=== PATIENT | female | born 1990 | race Two or more races ===

== ENCOUNTER 2016-11-01 07:58 | Day surgery (SDC) | payer MEDICAID, SELFPAY ==
[~2016-11-01 07:58] MED LIST: /MOXI40TA OR; ALBUTEROL INH; DUONSOL INH; PRED10TA2 OR; PRED20TA OR; PRED50TA OR; SING10TA31 PO
[2016-11-01] MEDS ORDERED: ONDANSETRON 4MG/2ML VIAL (J2405) IV ONE (08:30)
[2016-11-01] MEDS ORDERED: NS 1,000 ML IV ONE ×2 (08:30→10:00)
[2016-11-01] MEDS ORDERED: MORPHINE 4 MG/ML 1ML SYRINGE IV ONE (08:30)
[2016-11-01 08:45] LABS: BASO % 0.2 % (0.0-1.0); EOS # 0.1 K/mm3 (0.0-0.50); EOS % 0.9 % (0.0-3.0); LARGE UNSTAINED CELL # 0.1 K/mm3 (0.0-0.4); LARGE UNSTAINED CELL % 0.6 % (0.0-4.0); LYMPH % 5.7 % (24.0-44.0); MEAN CORPUSCULAR HGB CONC 32.2 g/dl (32.0-36.5); MEAN CORPUSCULAR VOLUME 90.3 fl (80.0-96.0); MONO # 0.6 K/mm3 (0.0-0.8); MONO % 3.5 % (0.0-5.0); NEUTROPHILS # 14.1 K/mm3 (1.8-7.7); NEUTROPHILS % 89.1 % (36.0-66.0); PLATELET COUNT, AUTOMATED 313 k/mm3 (150-450); RED CELL DISTRIBUTION WIDTH 12.3 % (11.5-14.5); WHITE BLOOD COUNT 15.9 K/mm3 (4.0-10.0)
[2016-11-01 08:59] LABS: CONTROL LINE HCG INT CTR LINE PRESENT
[2016-11-01 09:07] LABS: ALBUMIN 3.9 GM/DL (3.2-5.2); ALBUMIN/GLOBULIN RATIO 0.98 (1.00-1.93); ALKALINE PHOSPHATASE 74 U/L (45-117); ALT/SGPT 35 U/L (12-78); ANION GAP 9 MEQ/L (8-16); AST/SGOT 17 U/L (15-37); BILIRUBIN,TOTAL 0.7 MG/DL (0.2-1.0); BLOOD UREA NITROGEN 12 MG/DL (7-18); CARBON DIOXIDE LEVEL 26 MEQ/L (21-32); CHLORIDE LEVEL 106 MEQ/L (98-107); GLOMERULAR FILTRATION RATE > 60.0 (>60); GLUCOSE, FASTING 117 MG/DL (70-105); POTASSIUM SERUM 3.6 MEQ/L (3.5-5.1); SODIUM LEVEL 141 MEQ/L (136-145); TOTAL PROTEIN 7.9 GM/DL (6.4-8.2)
--- NOTE | 2016-11-01 09:46 | REP ---
Clinical: Flank pain. Findings: Acute right-sided obstructive uropathy with hydroureteronephrosis and. Ureteral stranding secondary to a 3 mm calculus at the ureterovesicle junction (image 134). A 2 mm nonobstructing left renal calculus also identified. Liver, spleen, pancreas, gallbladder, bilateral adrenal glands are normal. The enteric system is without obstruction or acute inflammatory process and a normal terminal ileum and appendix are identified in the right lower quadrant. Few scattered sigmoid diverticula noted without acute diverticulitis. Pelvis demonstrates normal uterus / adnexa and partially collapsed bladder. No ascites. No free air. No adenopathy. Abdominal aorta without aneurysm. Lung bases demonstrate left lower lobe atelectasis. Impression: 1. Mild acute right-sided obstructive uropathy with a 3 mm calculus at the ureterovesicle junction. 2. 2 mm nonobstructing left renal calculus. 3. Left basilar atelectasis. Signed by Kyree Amaro MD 11/01/2016 09:37 A
[2016-11-01] MEDS ORDERED: KETOROLAC 30 MG/ML VIAL (J1885) IV ONE (10:00)
[2016-11-01] MEDS ORDERED: CIPROFLOXACIN/D5W 400 MG/200 ML BAG (J0744) As Ordered ONE (11:36)
--- NOTE | 2016-11-01 11:48 | SMCUROLCON ---
Urology Consultation General Date of Consultation 11/01/16 Reason For Consultation This patient is seen for Right Ureter Stone, leukocytosis. NPO. Cystoscopy, right RPG, JJ. Cipro. dc home after. Strain urine. Full consultation dictated. History of Present Illness The patient is a -year-old with a past medical history for . Medications Current Medications Current Medications Home Med (Med Rec Complete!) ASDIRECTED XX ; Start 11/01/16 at 10:30; Stop at 10:30; Status DC Allergies Allergies: Coded Allergies: No Known Drug Allergy (Verified Allergy, Unknown, 05/21/12) SEASONAL ALLERGIES (Verified Allergy, Unknown, 09/03/10) Vital Signs/I&O Vital Signs Date Time Temp Pulse Resp B/P (MAP) Pulse Ox O2 Delivery O2 Flow Rate FiO2 11/01/16 10:52 97.8 76 18 139/91 (107) 97 11/01/16 09:17 Room Air Laboratory Data 24H Labs Laboratory Tests 2 11/01/16 08:34: White Blood Count 15.9H, Red Blood Count 4.45, Hemoglobin 12.9, Hematocrit 40.2 , Mean Corpuscular Volume 90.3, Mean Corpuscular Hemoglobin 29.0, Mean Corpuscular Hemoglobin Concent 32.2, Red Cell Distribution Width 12.3, Platelet Count 313, Neutrophils (%) (Auto) 89.1H, Lymphocytes (%) (Auto) 5.7L, Monocytes (%) (Auto) 3.5, Eosinophils (%) (Auto) 0.9, Basophils (%) (Auto) 0.2, Neutrophils # (Auto) 14.1H, Lymphocytes # (Auto) 1.0L, Monocytes # (Auto) 0.6, Eosinophils # (Auto) 0.1, Basophils # (Auto) 0.0, Large Unclassified Cells % 0.6 , Large Unclassified Cells # 0.1, Anion Gap 9, Glomerular Filtration Rate > 60.0 , Blood Urea Nitrogen 12, Creatinine 0.80, Sodium Level 141, Potassium Level 3.6 , Chloride Level 106, Carbon Dioxide Level 26, Calcium Level 9.0, Aspartate Amino Transf (AST/SGOT) 17, Alanine Aminotransferase (ALT/SGPT) 35, Alkaline Phosphatase 74, Total Bilirubin 0.7, Total Protein 7.9, Albumin 3.9, Albumin/ Globulin Ratio 0.98L, Lipase 100, Human Chorionic Gonadotropin, Qual NEGATIVE 11/01/16 09:49: Urine Appearance HAZY, Urine Color YELLOW, Urine pH 6.0, Urine Specific [place] 1.026, Urine Protein 1+H, Urine Glucose (UA) NEGATIVE, Urine Ketones TRACEH, Urine Urobilinogen 0.2, Urine Bilirubin NEGATIVE, Urine Leukocyte Esterase NEGATIVE, Urine Blood 3+H, Urine Nitrite NEGATIVE, Urine WBC (Auto) 2, Urine RBC (Auto) TNTCH, Urine Hyaline Casts (Auto) 0, Urine Bacteria (Auto) NEGATIVE, Urine Squamous Epithelial Cells 1, Urine Mucus (Auto) SMALL, Urine Sperm (Auto) CBC/BMP Laboratory Tests 11/01/16 08:34 Red Blood Count 4.45, Mean Corpuscular Volume 90.3, Mean Corpuscular Hemoglobin 29.0, Mean Corpuscular Hemoglobin Concent 32.2, Red Cell Distribution Width 12.3 , Neutrophils (%) (Auto) 89.1 H, Lymphocytes (%) (Auto) 5.7 L, Monocytes (%) ( Auto) 3.5, Eosinophils (%) (Auto) 0.9, Basophils (%) (Auto) 0.2, Neutrophils # ( Auto) 14.1 H, Lymphocytes # (Auto) 1.0 L, Monocytes # (Auto) 0.6, Eosinophils # (Auto) 0.1, Basophils # (Auto) 0.0, Calcium Level 9.0, Aspartate Amino Transf ( AST/SGOT) 17, Alanine Aminotransferase (ALT/SGPT) 35, Alkaline Phosphatase 74, Total Bilirubin 0.7, Total Protein 7.9, Albumin 3.9 Microbiology Microbiology 11/01/16 Urine Culture, Received Pending JEANA ELIZABETH MD Nov 01, 2016 11:48
[2016-11-01] MEDS ORDERED: CONRAY-60 60% 50ML VIAL (Q9961) As Ordered ONE (11:53)
[2016-11-01] MEDS ORDERED: CIPROFLOXACIN 400 MG in APPROPRIATE DILUENT 1 EA IV ONE (12:00)
--- NOTE | 2016-11-01 12:12 | CR ---
DATE OF CONSULTATION: 11/01/2016 This 26-year-old female was evaluated in consultation as requested by nurse practitioner Gen on 11/01/2016 for right renal colic. She presents with a one day history of right renal colic with intermittent gross hematuria. She is a recurrent stone former (spontaneous passage). Prior to presentation, there was no history of voiding symptoms, urinary tract infection, urolithiasis, flank pain, gross hematuria, or constitutional symptoms. Past medical history significant for asthma. Review of systems negative for diabetes, hypertension, cardiac or thyroid pathology, headaches, epilepsy, CVA, glaucoma, peptic ulcer disease, cholelithiasis or blood borne diseases. She is on no medications and has no allergies to medications. Socially, she is and has one child. She is a three cigarette per day smoker for 7 years who consumes alcohol occasionally. Family history is significant for nephrolithiasis on the paternal side. General examination revealed a comfortable individual. Her heart rate was 76. Respiratory rate was 18. Blood pressure was 139/91. Temperature was 97.8 degrees Fahrenheit. Palpation of the head and neck failed to reveal lymphadenopathy. Auscultation of the chest was clear. Normal heart sounds. Examination of the back and abdomen were benign. She was obese. An urinalysis (11/01/2016) demonstrated 3+ microhematuria with a pH of 6.0. Nitrites and leukocytes were negative. Serum hematologic and biochemical indices determination (11/01/2016) demonstrated a hemoglobin of 12.9, leukocyte count 15.9, and a creatinine of 0.8. Computed tomography of the abdomen and pelvis without intravenous contrast (11/01/2016) demonstrated a 3 mm right ureterovesical junction calculus and a 2 mm left kidney calculus. A serum BHCG determination (11/01/2016) is negative. ASSESSMENT: 1. Right ureterovesical junction calculus. 2. Leukocytosis. 3. Left kidney calculus. 4. Asthma. 5. Obesity. PLAN: The above findings were discussed with the patient, her family, nursing staff and emergency department. Following nothing by mouth status, cystoscopy, right retrograde ureteropyelography and JJ stent insertion will be performed. She may be discharged home following the procedure and will followup with urology in one week with a KUB radiograph. Exit prescription (ciprofloxacin) will be provided. Informed consent for the possibility of, but not limited to, urosepsis and ureteral injury was obtained. Should you require additional information, please do not hesitate to contact me. Thanking you for the confidence of your referral. MD ESTEBAN Pearson
[2016-11-01] MEDS ORDERED: MIDAZOLAM INJ 2 MG/2 ML VIAL (J2250) As Ordered ONE (12:32)
[2016-11-01] MEDS ORDERED: PROPOFOL 200 MG/20 ML VIAL As Ordered ONE (12:32)
[2016-11-01] MEDS ORDERED: fentaNYL 100 MCG/2 ML INJECTION (J3010) As Ordered ONE (12:32)
[2016-11-01] MEDS ORDERED: METOCLOPRAMIDE INJ 10MG/2ML VIAL (J2765) As Ordered ONE (12:32)
[2016-11-01] MEDS ORDERED: LIDOCAINE 2% INJ 100 MG/5 ML SDV (FOR ANES.) As Ordered ONE (12:33)
[2016-11-01] MEDS ORDERED: LEVALBUTEROL 1.25 MG/0.5 ML CONCENTRATE NEB As Ordered ONE (12:36)
--- NOTE | 2016-11-01 12:41 | REP ---
Clinical: Retrograde pyelogram for right-sided obstructive uropathy. Comparison: CT dated 11/01/2016. Technique: Intraoperative fluoroscopic imaging. Findings: Final fluoroscopic images demonstrate a right ureteral stent in satisfactory position. Total fluoroscopic time 12 seconds. Impression: Status post right ureteral stent placement. Signed by Kyree Amaro MD 11/01/2016 12:33 P
--- NOTE | 2016-11-01 12:44 | RO ---
DATE OF PROCEDURE: 11/01/2016 PREOPERATIVE DIAGNOSES: 1. Right ureterovesical junction 3 mm calculus. 2. Leukocytosis. POSTOPERATIVE DIAGNOSES: 1. Right ureterovesical junction 3 mm calculus. 2. Leukocytosis. 3. Pyuria. PROCEDURE: Cystoscopy, right retrograde ureteropyelography, 6 Scottish Mcallen JJ stent insertion, fluoroscopy. SURGEON: Dr. Yosvany Paris ASSISTANT PUBLIC DEFENDER: ANESTHESIA: General. COMPLICATIONS: None. ESTIMATED BLOOD LOSS: 0 mL. PROCEDURE: In lithotomy position, the patient was prepped and draped in the usual fashion. Plain fluoroscopy of the upper urinary tract failed to confirm the presence of radiopaque calculi. A 22 Scottish cystoscope was advanced into the urinary bladder under direct vision. A urine specimen for culture and sensitivity was obtained. Quintana cystoscopy revealed normal ureteric orifices bilaterally and normal urothelium. There was no evidence of tumor, active bleeding or urolithiasis. A normal bladder neck and urethra were noted. A 5 Scottish open ended ureteral catheter was used to intubate the right ureteric orifice. Retrograde ureteropyelography confirmed a normal caliber ureter with mild hydronephrosis. The retrograde was performed gently to minimize the risk of pyelovenous backflow. Under fluoroscopy, 0.035 guidewire was advanced up in the right renal pelvis under fluoroscopy. The 5 Scottish open ended ureteral catheter was removed and a 6 Scottish Mcallen JJ stent insertion was advanced under fluoroscopy and direct vision. Its position was confirmed. Alongside the JJ stent following placement, slight pyuria was noted. Prior to removal of the instruments, the bladder was drained. At the conclusion of the procedure, sponge and instrument counts were correct. Estimated blood loss for the procedure was 0 mL. In the recovery room, the patient was alert and stable. DISPOSITION: Exit prescription (ciprofloxacin) provided. KUB radiograph and office visit with urology in 1 week. MTDD
[2016-11-01] MEDS ORDERED: LR 1,000 ML IV SCH ×2 (12:45)
[2016-11-01] MEDS ORDERED: ONDANSETRON 4MG/2ML VIAL (J2405) IV PRN ×2 (12:45)
[2016-11-01] MEDS ORDERED: PERCOCET 5MG/325MG TAB PO PRN (12:45)
[2016-11-01] MEDS ORDERED: fentaNYL 100 MCG/2 ML INJECTION (J3010) IV PRN (12:45)
[2016-11-01 13:20] VITALS: BP 124/71
[2016-11-01 13:50] VITALS: BP 120/73
[2016-11-01 14:10] VITALS: BP 116/63
[2016-11-01] MEDS ORDERED: IBUPROFEN 600 MG TAB PO ONE (15:00)
[2016-11-01 15:10] VITALS: BP 117/68
== END 2016-11-01 17:00 | disposition home or self-care (01) ==
LOC: M ED 07:58 → M SDC 10:30 → M MSPAV 13:20 → M SDC 17:00
PROVIDERS: ATTEND Urology
DX: N20.1 Calculus of ureter (principal); D72.829 Elevated white blood cell count, unspecified; R82.71 Bacteriuria; J45.909 Unspecified asthma, uncomplicated; F17.210 Nicotine dependence, cigarettes, uncomplicated; Z79.899 Other long term (current) drug therapy
CPT/HCPCS: 52332; 74176; 74420; 80053; 81001; 83690; 84703; 85025; 87086; 96361; 96374; 96375; 96376; 99284; C2617; J0744; J1885; J2250; J2405; J2765; J3010; Q9961

== ENCOUNTER → 2016-11-24 | Outpatient (CLI) | payer MEDICAID, SELFPAY ==
--- NOTE | 2016-11-24 15:06 | REP ---
KUB, ONE VIEW: HISTORY: Ureteral stone. A right ureteral stent is present. Air is present in small and large intestine. There are no air fluid levels or dilated loops of intestine. There is no pneumoperitoneum. There are no definite renal calculi. IMPRESSION: The patient is status post right ureteral stent placement. Signed by Mariusz Robledo MD 11/24/2016 03:29 P
== END ==
LOC: M SMT 13:58
PROVIDERS: ATTEND Urology
DX: N20.1 Calculus of ureter (principal)

== ENCOUNTER → 2016-11-24 | Outpatient (REF) | payer MEDICAID, SELFPAY | LOC: M SMT 13:03 | PROVIDERS: ATTEND Urology | DX: N20.1 Calculus of ureter (principal) ==

== ENCOUNTER → 2016-11-27 | Outpatient (CLI) | payer MEDICAID, SELFPAY ==
--- NOTE | 2016-11-27 09:33 | REP ---
CT ABDOMEN PELVIS WITHOUT IV CONTRAST: HISTORY: Ureteral stent. Ureteral stone. COMPARISON STUDY: November 01, 2016. This showed right-sided obstructive uropathy from a 3 mm calculus at the UV junction and an intrarenal calculus on the left. FINDINGS: Preliminary digital historical society director radiograph demonstrates a double pigtail ureteral stent in place on the right. Bowel gas pattern is normal. The lung bases are essentially clear. Previously noted atelectatic changes have resolved. No pleural effusion is seen. The liver and the spleen remain unremarkable. No gallbladder or pancreatic abnormality is seen. No adrenal lesion is observed. A right pigtail ureteral stent is noted in place in the renal pelvis. Its distal end is in good position in the urinary bladder. The previously noted right distal ureteral calculus is not apparent. No bladder calculus is seen. No left ureteral stone is seen. The previously noted right-sided hydronephrosis is improved although there is still subtle fullness of the intrarenal collecting system. No other significant abnormality. IMPRESSION: Double pigtail right ureteral stent in place. The previously noted right distal ureteral calculus cannot be seen. Signed by Chavez Bach MD 11/27/2016 11:58 A
== END ==
LOC: M RAD 07:23
PROVIDERS: ATTEND Urology
DX: N20.1 Calculus of ureter (principal)

== ENCOUNTER → 2017-01-27 | Outpatient (REF) | payer OTHER ==
[2017-01-28 11:52] LABS: HEPATITIS B SURFACE ANTIBODY NEGATIVE (POSITIVE)
== END ==
LOC: M SFHCPLAZ 15:22
PROVIDERS: ATTEND Physician Assistant Medical
DX: Z30.011 Encounter for initial prescription of contraceptive pills (principal); Z11.4 Encounter for screening for human immunodeficiency virus [HIV]; Z11.59 Encounter for screening for other viral diseases

== ENCOUNTER → 2017-02-01 | Outpatient (CLI) | payer OTHER ==
--- NOTE | 2017-02-01 13:49 | REP ---
Right ankle four views: Comparison is 11/08/2011. The previous lateral malleolar and posterior malleolar fractures have healed in satisfactory position alignment. There is no acute fracture. The mortise is symmetric. Mineralization is normal. There is an accessory ossicle distal to the medial malleolus. Impression: No acute fracture or dislocation. Signed by Yg Webb MD 02/01/2017 01:41 P
== END ==
LOC: M RAD 13:00
PROVIDERS: ATTEND Physician Assistant
DX: M25.571 Pain in right ankle and joints of right foot (principal)

== ENCOUNTER → 2018-10-19 | Outpatient (REF) | payer OTHER ==
[~2018-10-19] MED LIST changes: -/MOXI40TA OR; +AVEL1TAB2 OR
[2018-10-19 14:18] LABS: APPEARANCE, URINE CLEAR (CLEAR); BACTERIA, URINE AUTO NEGATIVE (NEGATIVE); BILIRUBIN, URINE AUTO NEGATIVE (NEGATIVE); BLOOD, URINE BLOOD 1+ (NEGATIVE); COLOR, URINE STRAW (YELLOW); GLUCOSE, URINE (UA) AUTO NEGATIVE (NEGATIVE); KETONE, URINE AUTO NEGATIVE (NEGATIVE); LEUKOCYTE ESTERASE, URINE AUTO NEGATIVE (NEGATIVE); NITRITE, URINE AUTO NEGATIVE (NEGATIVE); PROTEIN, URINE AUTO NEGATIVE (NEGATIVE); RBC, URINE AUTO 1 /HPF (0-3); SPECIFIC GRAVITY URINE AUTO 1.008 (1.002-1.035); SQUAMOUS EPITHELIAL CELL UR AU 0 /HPF (0-6); UROBILINOGEN, URINE AUTO 0.2 mg/dL (0.0-2.0); WBC, URINE AUTO 0 /HPF (0-3)
== END ==
LOC: M SFHCPLAZ 11:49
PROVIDERS: ATTEND Family Medicine
DX: R30.0 Dysuria (principal); R10.9 Unspecified abdominal pain

== ENCOUNTER → 2018-10-19 | Outpatient (CLI) | payer OTHER ==
[~2018-10-19] MED LIST changes: +ISOVUE-370 76% 100ML VIAL (Q9967) As Ordered ONE
--- NOTE | 2018-10-19 13:40 | REP ---
Clinical: Flank pain and dysuria. Technique: Axial precontrast, contrast enhanced, and delayed images of the abdomen and pelvis using 100 ml Isovue 370 intravenous contrast material with coronal and sagittal re-formations. Comparison: 11/27/2016 Findings: Evaluation of the urinary tract system demonstrates normal kidneys, ureters, and bladder. No hydroureteronephrosis, perinephric stranding, intrarenal or obstructing ureteral calculi are identified. No urinary tract mass lesion. No renal cystic changes. Liver, spleen, pancreas, gallbladder, and bilateral adrenal glands are normal. The enteric system is without obstruction or acute inflammatory process. Normal terminal ileum and appendix identified in the right lower quadrant. Scattered sigmoid diverticula noted without acute diverticulitis. Pelvis demonstrates normal bladder and age-appropriate uterus/adnexa. No ascites. No free air. No adenopathy. Abdominal aorta without aneurysm. Musculoskeletal structures are intact. Impression: Normal pre and postcontrast CT of the abdomen and pelvis. No urinary tract pathology appreciated. Electronically Signed by Kyree Amaro MD 10/19/2018 01:32 P
== END ==
LOC: M RAD 12:13
PROVIDERS: ATTEND Family Medicine
DX: R10.9 Unspecified abdominal pain (principal); R30.0 Dysuria
CPT/HCPCS: 74178; Q9967

== ENCOUNTER → 2018-10-20 | Outpatient (CLI) | payer OTHER ==
[~2018-10-20] MED LIST changes: -ISOVUE-370 76% 100ML VIAL (Q9967) As Ordered ONE
[2018-10-20 18:30] LABS: BASO % 0.4 % (0.0-1.0); EOS # 0.1 10^3/uL (0.0-0.5); HEMATOCRIT 40.5 % (36.0-47.0); HEMOGLOBIN 13.4 g/dl (12.0-15.5); LYMPH # 3.2 10^3/uL (1.5-5.0); LYMPH % 30.8 % (24.0-44.0); MEAN CORPUSCULAR HEMOGLOBIN 30.3 pg (27.0-33.0); MEAN CORPUSCULAR HGB CONC 33.1 g/dl (32.0-36.5); MEAN CORPUSCULAR VOLUME 91.6 fl (80.0-96.0); MONO # 0.7 10^3/uL (0.0-0.8); MONO % 6.6 % (0.0-5.0); NEUTROPHILS # 6.4 10^3/uL (1.5-8.5); NEUTROPHILS % 60.6 % (36.0-66.0); PLATELET COUNT, AUTOMATED 312 10^3/uL (150-450); RED BLOOD COUNT 4.42 10^6/uL (4.00-5.40); WHITE BLOOD COUNT 10.5 10^3/uL (4.0-10.0)
[2018-10-20 18:56] LABS: BLOOD UREA NITROGEN 22 MG/DL (7-18); CALCIUM LEVEL 9.6 MG/DL (8.5-10.1); CARBON DIOXIDE LEVEL 25 MEQ/L (21-32); CHLORIDE LEVEL 109 MEQ/L (98-107); CREATININE FOR GFR 0.78 MG/DL (0.55-1.30); GLOMERULAR FILTRATION RATE > 60.0 (>60); GLUCOSE, FASTING 81 MG/DL (70-100); POTASSIUM SERUM 4.1 MEQ/L (3.5-5.1); SODIUM LEVEL 142 MEQ/L (136-145)
== END ==
LOC: M LAB 16:53
PROVIDERS: ATTEND Family Medicine
DX: R10.9 Unspecified abdominal pain (principal); R30.0 Dysuria

== ENCOUNTER → 2019-04-06 | Outpatient (REF) | payer OTHER ==
[2019-04-06 18:29] LABS: BASO # 0.1 10^3/uL (0.0-0.2); BASO % 0.7 % (0.0-1.0); EOS # 0.2 10^3/uL (0.0-0.5); EOS % 2.2 % (0.0-3.0); HEMATOCRIT 42.1 % (36.0-47.0); HEMOGLOBIN 13.4 g/dl (12.0-15.5); LYMPH # 3.1 10^3/uL (1.5-5.0); LYMPH % 37.7 % (24.0-44.0); MEAN CORPUSCULAR HEMOGLOBIN 28.4 pg (27.0-33.0); MEAN CORPUSCULAR HGB CONC 31.8 g/dl (32.0-36.5); MEAN CORPUSCULAR VOLUME 89.2 fl (80.0-96.0); MONO # 0.9 10^3/uL (0.0-0.8); MONO % 10.8 % (0.0-5.0); NEUTROPHILS % 48.2 % (36.0-66.0); PLATELET COUNT, AUTOMATED 359 10^3/uL (150-450); RED BLOOD COUNT 4.72 10^6/uL (4.00-5.40); WHITE BLOOD COUNT 8.3 10^3/uL (4.0-10.0)
[2019-04-06 18:51] LABS: HEMOGLOBIN A1c 6.1 %
[2019-04-06 19:03] LABS: ALBUMIN 4.1 GM/DL (3.2-5.2); ALT/SGPT 52 U/L (12-78); BILIRUBIN,TOTAL 0.8 MG/DL (0.2-1.0); BLOOD UREA NITROGEN 10 MG/DL (7-18); CARBON DIOXIDE LEVEL 27 MEQ/L (21-32); CHLORIDE LEVEL 109 MEQ/L (98-107); CHOLESTEROL LEVEL 179 MG/DL (<200); CHOLESTEROL RISK RATIO 4.068 (<5); FREE T4 1.16 NG/DL (0.76-1.46); GLOMERULAR FILTRATION RATE > 60.0 (>60); GLUCOSE, FASTING 84 MG/DL (70-100); HDL CHOLESTEROL 44 MG/DL (>40); LDL CHOLESTEROL 104 MG/DL (<100); NON-HDL-C 135 MG/DL; POTASSIUM SERUM 4.4 MEQ/L (3.5-5.1); SODIUM LEVEL 141 MEQ/L (136-145); TOTAL PROTEIN 7.4 GM/DL (6.4-8.2); TRIGLYCERIDES LEVEL 154 MG/DL (<150)
== END ==
LOC: M SFHCPLAZ 13:55
PROVIDERS: ATTEND Physician Assistant Medical
DX: Z13.220 Encounter for screening for lipoid disorders (principal); F41.8 Other specified anxiety disorders; E66.9 Obesity, unspecified; K21.9 Gastro-esophageal reflux disease without esophagitis

== ENCOUNTER → 2019-07-19 | Outpatient (CLI) | payer OTHER ==
--- NOTE | 2019-07-19 17:37 | REP ---
REASON FOR EXAM: Left lower quadrant pain. COMPARISON: Multiple, the latest 10/19/2018, which was normal. The lung bases are clear and unchanged. The liver, gallbladder, spleen, pancreas, adrenal glands, and kidneys are again seen to be within normal limits and unchanged. There is no nephroureteral lithiasis, hydronephrosis, or hydroureter. There are no urinary bladder calcifications. The intra-abdominal and intrapelvic bowel loops and their mesenteries are within normal limits. There is no free fluid or free air in the abdomen or pelvis. The abdominal aorta and para-aortic regions are within normal limits. In the left hemipelvis, there is a 2.7-cm sized round area of low density, likely a left ovarian cyst. Bone window technique throughout the examination shows the osseous structures to be stable and intact. IMPRESSION: Likely small left ovarian cyst, as described above. Electronically Signed by Tavo Castro DO 07/20/2019 11:20 A
== END ==
LOC: M RAD 14:50
PROVIDERS: ATTEND Physician Assistant
DX: R10.32 Left lower quadrant pain (principal)

== ENCOUNTER → 2019-08-01 | Outpatient (CLI) | payer OTHER ==
--- NOTE | 2019-08-01 16:43 | REP ---
Clinical: Acute left lower quadrant pain. Technique: Axial noncontrast images from the lung bases to the pubic symphysis with coronal and sagittal re-formations. Comparison: 07/19/2019. Findings: Lung bases are clear. Liver, spleen, pancreas, gallbladder, bilateral adrenal glands and kidneys are normal for noncontrast evaluation. The enteric system is without obstruction or acute inflammatory process. Scattered colonic diverticula noted without acute diverticulitis. Pelvis demonstrates normal bladder and age-appropriate uterus/adnexa. No ascites. No free air. No adenopathy. Abdominal aorta without aneurysm. Surrounding musculoskeletal structures without acute osseous abnormality. Impression: 1. No acute abdominopelvic pathology appreciated. 2. Few scattered colonic diverticula without acute diverticulitis. Electronically Signed by Kyree Amaro MD 08/01/2019 04:35 P
== END ==
LOC: M RAD 15:29
PROVIDERS: ATTEND Physician Assistant
DX: R10.32 Left lower quadrant pain (principal); K57.90 Diverticulosis of intestine, part unspecified, without perforation or abscess without bleeding

== ENCOUNTER → 2019-11-04 | Outpatient (CLI) | payer OTHER ==
[~2019-11-04] MED LIST changes: +ONDA4TAB6 PO
[2019-11-04 18:23] LABS: HCG, SERUM QUALITATIVE NEGATIVE (NEGATIVE)
== END ==
LOC: M PLALAB 14:46
PROVIDERS: ATTEND Family Medicine
DX: Z32.00 Encounter for pregnancy test, result unknown (principal)

== ENCOUNTER 2019-11-28 17:56 | Emergency (ER) | payer OTHER ==
[~2019-11-28] VITALS: Ht 162.6 cm; Wt 110.8 kg
[~2019-11-28 17:56] MED LIST changes: -ONDA4TAB6 PO
[2019-11-28] MEDS ORDERED: NS 1,000 ML IV ONE (18:45)
[2019-11-28] MEDS ORDERED: ONDANSETRON 4MG/2ML VIAL IV ONE (18:45)
[2019-11-28] MEDS ORDERED: PANTOPRAZOLE 40MG VIAL (C9113 PER 1) IV ONE (18:45)
[2019-11-28] MEDS ORDERED: ALBUTEROL 90 MCG/ACT 8GM HFA INHALER INH ONE (18:45)
[2019-11-28 19:12] LABS: BASO # 0.1 10^3/uL (0.0-0.2); BASO % 0.4 % (0.0-1.0); EOS # 0.2 10^3/uL (0.0-0.5); EOS % 1.6 % (0.0-3.0); HEMATOCRIT 39.1 % (36.0-47.0); HEMOGLOBIN 12.4 g/dl (12.0-15.5); LYMPH # 2.2 10^3/uL (1.5-5.0); MEAN CORPUSCULAR HEMOGLOBIN 28.3 pg (27.0-33.0); MEAN CORPUSCULAR HGB CONC 31.7 g/dl (32.0-36.5); MEAN CORPUSCULAR VOLUME 89.3 fl (80.0-96.0); MONO # 0.8 10^3/uL (0.0-0.8); MONO % 6.8 % (0.0-5.0); NEUTROPHILS # 8.9 10^3/uL (1.5-8.5); NEUTROPHILS % 72.8 % (36.0-66.0); PLATELET COUNT, AUTOMATED 292 10^3/uL (150-450); RED BLOOD COUNT 4.38 10^6/uL (4.00-5.40); WHITE BLOOD COUNT 12.3 10^3/uL (4.0-10.0)
[2019-11-28 19:35] LABS: ALBUMIN 3.5 GM/DL (3.2-5.2); BILIRUBIN,DIRECT 0.1 MG/DL (0.0-0.2); BILIRUBIN,TOTAL 0.2 MG/DL (0.2-1.0); TOTAL PROTEIN 7.2 GM/DL (6.4-8.2)
--- NOTE | 2019-11-28 20:01 | REPVR ---
PROCEDURE INFORMATION: Exam: XR Chest, 2 Views Exam date and time: 11/28/2019 6:37 PM Age: 29 years old Clinical indication: Chest pain; Additional info: Abdominal pain TECHNIQUE: Imaging protocol: XR of the chest Views: 2 views. COMPARISON: No relevant prior studies available. FINDINGS: Lungs: Unremarkable. No consolidation. Pleural space: Unremarkable. No pleural effusion. No pneumothorax. Heart/Mediastinum: Unremarkable. No cardiomegaly. Bones/joints: Unremarkable. IMPRESSION: No acute findings. Electronically signed by: Krzysztof Chu On 11/28/2019 20:01:40 PM
[2019-11-28] MEDS ORDERED: ONDA4TAB6 PO (21:02)
[2019-11-28 21:52] VITALS: BP 127/84
== END 2019-11-28 21:57 | disposition home or self-care (01) ==
LOC: M ED 17:56
DX: J06.9 Acute upper respiratory infection, unspecified (principal); B34.9 Viral infection, unspecified; R11.10 Vomiting, unspecified; J45.901 Unspecified asthma with (acute) exacerbation; Z20.828 Contact with and (suspected) exposure to other viral communicable diseases; R51.9 Headache, unspecified; K21.9 Gastro-esophageal reflux disease without esophagitis; F17.200 Nicotine dependence, unspecified, uncomplicated; J30.2 Other seasonal allergic rhinitis
CPT/HCPCS: 71046; 80047; 80076; 81001; 83690; 84702; 85025; 94640; 96361; 96374; 96375; 99284; C9113; J2405; U0003

== ENCOUNTER → 2020-01-17 | Outpatient (REF) | payer OTHER ==
[~2020-01-17] MED LIST changes: +ONDA4TAB6 PO
[2020-01-17 13:43] LABS: BASO # 0.1 10^3/uL (0.0-0.2); BASO % 0.6 % (0.0-1.0); EOS # 0.2 10^3/uL (0.0-0.5); EOS % 2.1 % (0.0-3.0); HEMATOCRIT 41.1 % (36.0-47.0); LYMPH # 3.1 10^3/uL (1.5-5.0); LYMPH % 38.2 % (24.0-44.0); MEAN CORPUSCULAR HEMOGLOBIN 28.3 pg (27.0-33.0); MEAN CORPUSCULAR HGB CONC 31.6 g/dl (32.0-36.5); MEAN CORPUSCULAR VOLUME 89.3 fl (80.0-96.0); MONO # 0.6 10^3/uL (0.0-0.8); MONO % 6.9 % (0.0-5.0); NEUTROPHILS # 4.3 10^3/uL (1.5-8.5); PLATELET COUNT, AUTOMATED 331 10^3/uL (150-450); WHITE BLOOD COUNT 8.2 10^3/uL (4.0-10.0)
[2020-01-17 14:13] LABS: URINE PREG TEST NEGATIVE (NEGATIVE)
[2020-01-17 14:25] LABS: ALBUMIN 3.9 GM/DL (3.2-5.2); ALT/SGPT 58 U/L (12-78); BILIRUBIN,TOTAL 0.9 MG/DL (0.2-1.0); BLOOD UREA NITROGEN 13 MG/DL (7-18); CALCIUM LEVEL 9.3 MG/DL (8.5-10.1); CARBON DIOXIDE LEVEL 27 MEQ/L (21-32); CHLORIDE LEVEL 105 MEQ/L (98-107); CHOLESTEROL LEVEL 219 MG/DL (<200); CHOLESTEROL RISK RATIO 3.532 (<5); CREATININE FOR GFR 0.65 MG/DL (0.55-1.30); FREE T4 1.21 NG/DL (0.76-1.46); GLOMERULAR FILTRATION RATE > 60.0 (>60); GLUCOSE, FASTING 98 MG/DL (70-100); HDL CHOLESTEROL 62 MG/DL (>40); LDL CHOLESTEROL 138 MG/DL (<100); NON-HDL-C 157 MG/DL; POTASSIUM SERUM 4.5 MEQ/L (3.5-5.1); SODIUM LEVEL 136 MEQ/L (136-145); TOTAL PROTEIN 7.8 GM/DL (6.4-8.2); TRIGLYCERIDES LEVEL 95 MG/DL (<150)
[2020-01-17 14:32] LABS: HEMOGLOBIN A1c 5.7 %
== END ==
LOC: M SFHCPLAZ 10:32
PROVIDERS: ATTEND Physician Assistant Medical
DX: Z30.011 Encounter for initial prescription of contraceptive pills (principal); F41.8 Other specified anxiety disorders; K21.9 Gastro-esophageal reflux disease without esophagitis; N20.1 Calculus of ureter; E66.9 Obesity, unspecified

== ENCOUNTER 2020-04-18 11:45 | Emergency (ER) | payer OTHER ==
[~2020-04-18] VITALS: Ht 162.6 cm; Wt 112.2 kg
[2020-04-18] MEDS ORDERED: LISI2.5T2 (11:56)
[2020-04-18] MEDS ORDERED: ALBU8.5H (11:56)
[2020-04-18] MEDS ORDERED: OMEP-221 (11:56)
[2020-04-18] MEDS ORDERED: KETOROLAC 30 MG/ML 1ML VIAL IV ONE (13:25)
[2020-04-18] MEDS ORDERED: ONDANSETRON 4MG/2ML VIAL IV ONE (13:25)
[2020-04-18] MEDS ORDERED: NS 1,000 ML IV ONE (13:25)
[2020-04-18 14:19] LABS: BASO % 0.3 % (0.0-1.0); EOS # 0.1 10^3/uL (0.0-0.5); EOS % 0.3 % (0.0-3.0); HEMOGLOBIN 13.3 g/dl (12.0-15.5); LYMPH # 2.4 10^3/uL (1.5-5.0); LYMPH % 15.8 % (24.0-44.0); MEAN CORPUSCULAR HEMOGLOBIN 28.3 pg (27.0-33.0); MEAN CORPUSCULAR HGB CONC 31.7 g/dl (32.0-36.5); MEAN CORPUSCULAR VOLUME 89.4 fl (80.0-96.0); MONO # 0.9 10^3/uL (0.0-0.8); MONO % 5.7 % (2.0-8.0); NEUTROPHILS # 11.9 10^3/uL (1.5-8.5); NEUTROPHILS % 77.5 % (36.0-66.0); PLATELET COUNT, AUTOMATED 330 10^3/uL (150-450); WHITE BLOOD COUNT 15.3 10^3/uL (4.0-10.0)
--- NOTE | 2020-04-18 14:35 | REP ---
INDICATION: RUQ pain COMPARISON: None. TECHNIQUE: Real time robles scale ultrasound examination using curved array transducer. FINDINGS: Liver is enlarged and increased in echotexture with poor through transmission suggesting hepatomegaly and hepatosteatosis. No focal hepatic lesion identified. Pancreas is incompletely evaluated but visualized portions appear normal. Gallbladder and biliary system are unremarkable. No biliary ductal dilatation is appreciated and the common bile duct measures 2.6 mm diameter. Right kidney is normal in reniform shape without hydronephrosis and measures 11.5 x 4.9 x 4.7 cm. No ascites in the visualized right upper quadrant. IMPRESSION: 1. Hepatomegaly and hepatosteatosis. 2. Otherwise normal right upper quadrant ultrasound. <Electronically signed by Kyree Amaro > 04/18/20 [id number]
[2020-04-18] MEDS ORDERED: PHENAZOPYRIDINE 100 MG TAB PO ONE (14:45)
[2020-04-18 14:55] LABS: ALBUMIN 4.2 GM/DL (3.2-5.2); ALT/SGPT 55 U/L (12-78); BILIRUBIN,TOTAL 0.7 MG/DL (0.2-1.0); BLOOD UREA NITROGEN 16 MG/DL (7-18); CALCIUM LEVEL 9.9 MG/DL (8.5-10.1); CARBON DIOXIDE LEVEL 26 MEQ/L (21-32); CHLORIDE LEVEL 105 MEQ/L (98-107); CREATININE FOR GFR 0.66 MG/DL (0.55-1.30); GLOMERULAR FILTRATION RATE > 60.0 (>60); GLUCOSE, FASTING 78 MG/DL (70-100); POTASSIUM SERUM 4.4 MEQ/L (3.5-5.1); SODIUM LEVEL 136 MEQ/L (136-145); TOTAL PROTEIN 8.1 GM/DL (6.4-8.2)
[2020-04-18] MEDS ORDERED: PYRI1TAB5 PO (15:03)
[2020-04-18] MEDS ORDERED: ONDA4TAB6 PO (15:03)
[2020-04-18] MEDS ORDERED: CIPR-249 PO (15:03)
[2020-04-18 15:16] VITALS: BP 132/90
--- NOTE | 2020-04-19 08:22 | ED PDOC ---
Post-Departure Follow-Up abdominal us faxed to [facility] for fu Jaya James MD Apr 19, 2020 08:22
== END 2020-04-18 15:23 | disposition home or self-care (01) ==
LOC: M ED 11:45
DX: N39.0 Urinary tract infection, site not specified (principal); R10.10 Upper abdominal pain, unspecified; R16.0 Hepatomegaly, not elsewhere classified; K76.0 Fatty (change of) liver, not elsewhere classified; H92.03 Otalgia, bilateral; J45.909 Unspecified asthma, uncomplicated; Z79.51 Long term (current) use of inhaled steroids; Z79.899 Other long term (current) drug therapy
CPT/HCPCS: 76705; 80053; 81001; 84702; 85025; 87088; 87186; 99284; J1885; J2405

== ENCOUNTER → 2020-04-27 | Outpatient (REF) | payer OTHER ==
[~2020-04-27] MED LIST changes: +ALBU8.5H; +CIPR-249 PO; +LISI2.5T2; +OMEP-221; +PYRI1TAB5 PO
[2020-04-27 13:51] LABS: BASO # 0.1 10^3/uL (0.0-0.2); BASO % 0.5 % (0.0-1.0); EOS # 0.1 10^3/uL (0.0-0.5); HEMATOCRIT 40.8 % (36.0-47.0); HEMOGLOBIN 13.1 g/dl (12.0-15.5); LYMPH # 3.3 10^3/uL (1.5-5.0); LYMPH % 35.7 % (24.0-44.0); MEAN CORPUSCULAR HEMOGLOBIN 28.7 pg (27.0-33.0); MEAN CORPUSCULAR HGB CONC 32.1 g/dl (32.0-36.5); MEAN CORPUSCULAR VOLUME 89.3 fl (80.0-96.0); MONO # 0.6 10^3/uL (0.0-0.8); MONO % 6.4 % (2.0-8.0); NEUTROPHILS # 5.2 10^3/uL (1.5-8.5); NEUTROPHILS % 56.1 % (36.0-66.0); PLATELET COUNT, AUTOMATED 372 10^3/uL (150-450); RED BLOOD COUNT 4.57 10^6/uL (4.00-5.40); WHITE BLOOD COUNT 9.2 10^3/uL (4.0-10.0)
[2020-04-27 14:02] LABS: INR 0.97; PROTHROMBIN TIME 13.1 SECONDS (12.5-14.3)
[2020-04-27 14:03] LABS: PARTIAL THROMBOPLASTIN TIME 31.9 SECONDS (24.2-38.5)
[2020-04-27 14:21] LABS: ALBUMIN 4.2 GM/DL (3.2-5.2); ALT/SGPT 43 U/L (12-78); BILIRUBIN,TOTAL 0.6 MG/DL (0.2-1.0); BLOOD UREA NITROGEN 17 MG/DL (7-18); CALCIUM LEVEL 9.5 MG/DL (8.5-10.1); CARBON DIOXIDE LEVEL 28 MEQ/L (21-32); CHLORIDE LEVEL 107 MEQ/L (98-107); CREATININE FOR GFR 0.75 MG/DL (0.55-1.30); GLOMERULAR FILTRATION RATE > 60.0 (>60); GLUCOSE, FASTING 84 MG/DL (70-100); POTASSIUM SERUM 4.4 MEQ/L (3.5-5.1); SODIUM LEVEL 138 MEQ/L (136-145); TOTAL PROTEIN 7.5 GM/DL (6.4-8.2)
[2020-04-27 15:08] LABS: HEMOGLOBIN A1c 5.7 %
== END ==
LOC: M SFHCPLAZ 10:43
PROVIDERS: ATTEND Physician Assistant Medical
DX: K76.0 Fatty (change of) liver, not elsewhere classified (principal); K21.9 Gastro-esophageal reflux disease without esophagitis; R73.01 Impaired fasting glucose

== ENCOUNTER → 2020-12-21 | Outpatient (CLI) | payer BC ==
[~2020-12-21] MED LIST changes: -LISI2.5T2; +LISI2.5T9
== END ==
LOC: M OUTALCOH 13:54
PROVIDERS: ATTEND Psychiatry & Neurology Psychiatry
DX: F12.20 Cannabis dependence, uncomplicated (principal)

== ENCOUNTER → 2021-01-15 | Outpatient (RCR) | payer BC ==
[~2021-01-15] MED LIST changes: -OMEP-221; +OMEP40CA5
== END ==
LOC: M OUTALCOH 12-28 11:00
PROVIDERS: ATTEND Psychiatry & Neurology Psychiatry
DX: F12.20 Cannabis dependence, uncomplicated (principal); F16.10 Hallucinogen abuse, uncomplicated; Z72.0 Tobacco use

== ENCOUNTER 2021-02-12 15:55 | Outpatient (RCR) | payer BC ==
[~2021-02-12 15:55] MED LIST changes: +OMEP-221; -OMEP40CA5
== END 2021-02-15 ==
LOC: M OUTALCOH 15:55
PROVIDERS: ATTEND Psychiatry & Neurology Psychiatry
DX: F12.20 Cannabis dependence, uncomplicated (principal); F16.10 Hallucinogen abuse, uncomplicated; Z72.0 Tobacco use

== ENCOUNTER 2021-03-13 10:54 | Outpatient (RCR) | payer BC ==
[~2021-03-13 10:54] MED LIST changes: -OMEP-221; +OMEP40CA5
== END 2021-03-18 ==
LOC: M OUTALCOH 10:54
PROVIDERS: ATTEND Psychiatry & Neurology Psychiatry
DX: F12.20 Cannabis dependence, uncomplicated (principal); F16.10 Hallucinogen abuse, uncomplicated; Z72.0 Tobacco use

== ENCOUNTER 2021-04-02 13:00 | Outpatient (RCR) | payer BC | END 2021-04-15 | LOC: M OUTALCOH 13:00 | PROVIDERS: ATTEND Psychiatry & Neurology Psychiatry | DX: F12.20 Cannabis dependence, uncomplicated (principal); F16.10 Hallucinogen abuse, uncomplicated; Z72.0 Tobacco use ==

== ENCOUNTER 2022-04-29 21:44 | Emergency (ER) | payer BC, OTHER, SELFPAY ==
[~2022-04-29] VITALS: Ht 162.6 cm; Wt 102.6 kg
[2022-04-29 21:44] VITALS: BP 101/71
[2022-04-29] MEDS ORDERED: LIDOCAINE 1% MDV 20ML VIAL As Ordered ONE (22:54)
[2022-04-29] MEDS ORDERED: BOOSTRIX/ADACEL VACCINE (DIPHTH/PERTUSS/ACELL/TETANUS) 0.5ML SYR IM.IMMUN ONE (22:55)
[2022-04-29] MEDS ORDERED: LIDOCAINE 1% MDV 20ML VIAL SC ONE (22:55)
== END 2022-04-29 23:57 | disposition home or self-care (01) ==
LOC: M ED 21:44
DX: S61.012A Laceration without foreign body of left thumb without damage to nail, initial encounter (principal); W26.0XXA Contact with knife, initial encounter; I10 Essential (primary) hypertension; J45.909 Unspecified asthma, uncomplicated; Z87.442 Personal history of urinary calculi; Z79.51 Long term (current) use of inhaled steroids; Z79.811 Long term (current) use of aromatase inhibitors; Z79.899 Other long term (current) drug therapy; Z79.83 Long term (current) use of bisphosphonates

== ENCOUNTER → 2023-04-16 | Outpatient (REF) | payer OTHER | LOC: M PLALAB 14:49 | PROVIDERS: ATTEND Advanced Practice Midwife | DX: Z53.9 Procedure and treatment not carried out, unspecified reason (principal) ==

== ENCOUNTER → 2023-04-24 | Outpatient (CLI) | payer MEDICAID, SELFPAY ==
[2023-04-24 13:31] LABS: HEMATOCRIT 37.1 % (36.0-47.0); HEMOGLOBIN 12.1 g/dl (12.0-15.5); MEAN CORPUSCULAR HEMOGLOBIN 29.2 pg (27.0-33.0); MEAN CORPUSCULAR HGB CONC 32.6 g/dl (32.0-36.5); MEAN CORPUSCULAR VOLUME 89.6 fl (80.0-96.0); PLATELET COUNT, AUTOMATED 357 10^3/uL (150-450); RED BLOOD COUNT 4.14 10^6/uL (4.00-5.40); WHITE BLOOD COUNT 12.7 10^3/uL (4.0-10.0)
[2023-04-24 14:19] LABS: HIV 1&2 SCREEN NEGATIVE (NEGATIVE)
[2023-04-24 14:28] LABS: HEPATITIS C VIRUS ABY INDEX 0.03 INDEX (<0.8)
[2023-04-24 15:11] LABS: GC DNA AMPLIFICATION NEGATIVE (NEGATIVE)
== END ==
LOC: M PLALAB 08:51
PROVIDERS: ATTEND Advanced Practice Midwife
DX: Z34.91 Encounter for supervision of normal pregnancy, unspecified, first trimester (principal)

== ENCOUNTER → 2023-05-29 | Outpatient (CLI) | payer MEDICAID, OTHER ==
[2023-05-29 11:53] LABS: BASO # 0.1 10^3/uL (0.0-0.2); BASO % 0.4 % (0.0-1.0); EOS # 0.3 10^3/uL (0.0-0.5); EOS % 1.7 % (0.0-3.0); HEMATOCRIT 34.4 % (36.0-47.0); LYMPH % 15.6 % (24.0-44.0); MEAN CORPUSCULAR HEMOGLOBIN 28.7 pg (27.0-33.0); MEAN CORPUSCULAR VOLUME 89.8 fl (80.0-96.0); MONO # 0.9 10^3/uL (0.0-0.8); MONO % 4.8 % (2.0-8.0); NEUTROPHILS # 14.7 10^3/uL (1.5-8.5); PLATELET COUNT, AUTOMATED 305 10^3/uL (150-450); RED BLOOD COUNT 3.83 10^6/uL (4.00-5.40); WHITE BLOOD COUNT 19.4 10^3/uL (4.0-10.0)
[2023-05-29 12:09] LABS: HEMOGLOBIN A1c 5.2 % (4.0-6.0)
[2023-05-29 12:13] LABS: THYROID STIMULATING HORMONE 1.101 uIU/ML (0.55-4.78)
[2023-05-29 12:14] LABS: ALBUMIN 2.9 G/DL (3.2-5.2); ALKALINE PHOSPHATASE 61 U/L (46-116); ALT/SGPT 16 U/L (7.0-40); AST/SGOT 9 U/L (<34); BILIRUBIN,TOTAL 0.2 MG/DL (0.3-1.2); BLOOD UREA NITROGEN 11 MG/DL (9-23); CALCIUM LEVEL 9.3 MG/DL (8.5-10.1); CARBON DIOXIDE LEVEL 25 MMOL/L (20-31); CHLORIDE LEVEL 104 MMOL/L (98-107); CREATININE FOR GFR 0.49 MG/DL (0.55-1.30); GLOMERULAR FILTRATION RATE > 60.0 (>60); GLUCOSE, FASTING 105 MG/DL (60-100); POTASSIUM SERUM 4.1 MMOL/L (3.5-5.1); SODIUM LEVEL 138 MMOL/L (136-145); TOTAL PROTEIN 6.3 G/DL (5.7-8.2)
[2023-05-29 15:34] LABS: APPEARANCE, URINE HAZY (CLEAR); BACTERIA, URINE AUTO 1+ (NEGATIVE); BILIRUBIN, URINE AUTO NEGATIVE (NEGATIVE); BLOOD, URINE BLOOD NEGATIVE (NEGATIVE); COLOR, URINE YELLOW (YELLOW); GLUCOSE, URINE (UA) AUTO NEGATIVE (NEGATIVE); KETONE, URINE AUTO NEGATIVE (NEGATIVE); LEUKOCYTE ESTERASE, URINE AUTO NEGATIVE (NEGATIVE); NITRITE, URINE AUTO NEGATIVE (NEGATIVE); PROTEIN, URINE AUTO NEGATIVE (NEGATIVE); RBC, URINE AUTO 0 /HPF (0-3); SPECIFIC GRAVITY URINE AUTO 1.013 (1.002-1.035); SQUAMOUS EPITHELIAL CELL UR AU 2 /HPF (0-6); UROBILINOGEN, URINE AUTO 0.2 mg/dL (0.0-2.0); WBC, URINE AUTO 1 /HPF (0-3)
== END ==
LOC: M PLALAB 08:50
PROVIDERS: ATTEND Physician Assistant Medical
DX: Z00.00 Encounter for general adult medical examination without abnormal findings (principal); K21.9 Gastro-esophageal reflux disease without esophagitis; F41.8 Other specified anxiety disorders; F41.1 Generalized anxiety disorder; F33.0 Major depressive disorder, recurrent, mild; Z68.42 Body mass index [BMI] 45.0-49.9, adult; Z3A.15 15 weeks gestation of pregnancy

== ENCOUNTER → 2023-06-24 | Outpatient (CLI) | payer MEDICAID, OTHER | LOC: M WHC 09:47 | PROVIDERS: ATTEND Advanced Practice Midwife | DX: Z34.82 Encounter for supervision of other normal pregnancy, second trimester (principal); Z3A.20 20 weeks gestation of pregnancy ==

== ENCOUNTER → 2023-07-17 | Outpatient (CLI) | payer OTHER ==
[~2023-07-17] MED LIST changes: +ONDA-282 PO; -ONDA4TAB6 PO
== END ==
LOC: M RAD 13:10
PROVIDERS: ATTEND Obstetrics & Gynecology
DX: O99.512 Diseases of the respiratory system complicating pregnancy, second trimester (principal); Z3A.23 23 weeks gestation of pregnancy

== ENCOUNTER → 2023-08-05 | Outpatient (CLI) | payer OTHER ==
[2023-08-05 14:05] LABS: HEMATOCRIT 33.2 % (36.0-47.0); HEMOGLOBIN 10.8 g/dl (12.0-15.5); MEAN CORPUSCULAR HGB CONC 32.5 g/dl (32.0-36.5); PLATELET COUNT, AUTOMATED 307 10^3/uL (150-450); RED BLOOD COUNT 3.73 10^6/uL (4.00-5.40); WHITE BLOOD COUNT 17.7 10^3/uL (4.0-10.0)
== END ==
LOC: M PLALAB 08:31
PROVIDERS: ATTEND Obstetrics & Gynecology
DX: O99.512 Diseases of the respiratory system complicating pregnancy, second trimester (principal); Z3A.00 Weeks of gestation of pregnancy not specified

== ENCOUNTER → 2023-08-12 | Outpatient (CLI) | payer OTHER | LOC: M WHC 13:21 | PROVIDERS: ATTEND Advanced Practice Midwife | DX: O36.5920 Maternal care for other known or suspected poor fetal growth, second trimester, not applicable or unspecified (principal); O32.1XX0 Maternal care for breech presentation, not applicable or unspecified; Z3A.25 25 weeks gestation of pregnancy ==

== ENCOUNTER → 2023-08-14 | Outpatient (CLI) | payer OTHER | LOC: M LAB 07:26 | PROVIDERS: ATTEND Obstetrics & Gynecology | DX: R73.02 Impaired glucose tolerance (oral) (principal) ==

== ENCOUNTER → 2023-08-19 | Outpatient (CLI) | payer OTHER | LOC: M WHC 06:55 | PROVIDERS: ATTEND Advanced Practice Midwife | DX: O36.5990 Maternal care for other known or suspected poor fetal growth, unspecified trimester, not applicable or unspecified (principal); Z3A.00 Weeks of gestation of pregnancy not specified ==

== ENCOUNTER → 2023-08-21 | Outpatient (CLI) | payer OTHER ==
[2023-08-22 07:07] LABS: TOXOPLASMA IgG ABY <3.0 IU/mL (0.0-7.1)
[2023-08-23 17:22] LABS: HERPES ZOSTER, VARICELLA IgM <= 0.90 (<=0.90)
[2023-08-23 20:14] LABS: ANTI PARVO VIRUS LEVEL IGG 1.4 (<0.9); ANTI PARVO VIRUS LEVEL IgM 0.1 (<0.9)
[2023-08-24 14:47] LABS: CYTOMEGALOVIRUS IgM ANTIBODY < 30.00 AU/mL (<30.00)
== END ==
LOC: M PLALAB 09:42
PROVIDERS: ATTEND Advanced Practice Midwife
DX: O36.5990 Maternal care for other known or suspected poor fetal growth, unspecified trimester, not applicable or unspecified (principal)

== ENCOUNTER → 2023-08-26 | Outpatient (CLI) | payer OTHER | LOC: M WHC 13:06 | PROVIDERS: ATTEND Advanced Practice Midwife | DX: Z36.2 Encounter for other antenatal screening follow-up (principal); Z3A.29 29 weeks gestation of pregnancy ==

== ENCOUNTER → 2023-09-02 | Outpatient (CLI) | payer OTHER | LOC: M WHC 08:08 | PROVIDERS: ATTEND Advanced Practice Midwife | DX: O36.5930 Maternal care for other known or suspected poor fetal growth, third trimester, not applicable or unspecified (principal); Z3A.30 30 weeks gestation of pregnancy ==

== ENCOUNTER → 2023-09-07 | Outpatient (CLI) | payer OTHER | LOC: M WHC 07:47 | PROVIDERS: ATTEND Advanced Practice Midwife | DX: O36.5931 Maternal care for other known or suspected poor fetal growth, third trimester, fetus 1 (principal); Z3A.31 31 weeks gestation of pregnancy ==

== ENCOUNTER → 2023-09-14 | Outpatient (CLI) | payer OTHER | LOC: M WHC 07:43 | PROVIDERS: ATTEND Advanced Practice Midwife | DX: O36.5930 Maternal care for other known or suspected poor fetal growth, third trimester, not applicable or unspecified (principal); Z3A.32 32 weeks gestation of pregnancy ==

== ENCOUNTER → 2023-09-21 | Outpatient (CLI) | payer OTHER | LOC: M RAD 08:08 | PROVIDERS: ATTEND Advanced Practice Midwife | DX: O36.5930 Maternal care for other known or suspected poor fetal growth, third trimester, not applicable or unspecified (principal); Z3A.33 33 weeks gestation of pregnancy ==

== ENCOUNTER → 2023-09-28 | Outpatient (CLI) | payer OTHER | LOC: M WHC 08:38 | PROVIDERS: ATTEND Advanced Practice Midwife | DX: O36.5930 Maternal care for other known or suspected poor fetal growth, third trimester, not applicable or unspecified (principal); Z3A.34 34 weeks gestation of pregnancy ==

== ENCOUNTER → 2023-10-05 | Outpatient (CLI) | payer OTHER | LOC: M WHC 08:35 | PROVIDERS: ATTEND Advanced Practice Midwife | DX: O36.5930 Maternal care for other known or suspected poor fetal growth, third trimester, not applicable or unspecified (principal); Z3A.35 35 weeks gestation of pregnancy ==

== ENCOUNTER → 2023-10-09 | Outpatient (REF) | payer MEDICAID, OTHER | LOC: M SFHCWAGY 14:44 | PROVIDERS: ATTEND Obstetrics & Gynecology | DX: O24.419 Gestational diabetes mellitus in pregnancy, unspecified control (principal); Z36.85 Encounter for antenatal screening for Streptococcus B; Z3A.00 Weeks of gestation of pregnancy not specified ==

== ENCOUNTER → 2023-10-12 | Outpatient (CLI) | payer OTHER | LOC: M WHC 08:17 | PROVIDERS: ATTEND Advanced Practice Midwife | DX: O36.5930 Maternal care for other known or suspected poor fetal growth, third trimester, not applicable or unspecified (principal); Z3A.36 36 weeks gestation of pregnancy ==

== ENCOUNTER 2023-10-20 07:25 | Inpatient (IN) | payer OTHER, MEDICAID ==
[~2023-10-20] VITALS: Ht 162.6 cm; Wt 138.0 kg
[2023-10-20] VITALS (12 sets, daily range): BP systolic 97–136; BP diastolic 55–83
[~2023-10-20 07:25] MED LIST changes: +ALBU2.5V10 INH; +CLAR10TA7 PO; +METF-877 PO; +THERTAB52 PO
[2023-10-20] MEDS ORDERED: ceFAZolin SOD 1 GM in D5W MINI-BAG PLUS 50 ML IV ONE (07:55)
[2023-10-20] MEDS ORDERED: BICITRA 30ML SOLN UDC PO ONE (07:55)
[2023-10-20] MEDS ORDERED: ceFAZolin SOD 2 GM in IV 1 EA IV ONE (07:55)
[2023-10-20] MEDS: LR 1,000 ML IV SCH (08:40)
[2023-10-20 08:44] LABS: HEMATOCRIT 32.1 % (36.0-47.0); HEMOGLOBIN 10.4 g/dl (12.0-15.5); MEAN CORPUSCULAR HEMOGLOBIN 27.2 pg (27.0-33.0); MEAN CORPUSCULAR HGB CONC 32.4 g/dl (32.0-36.5); MEAN CORPUSCULAR VOLUME 83.8 fl (80.0-96.0); PLATELET COUNT, AUTOMATED 305 10^3/uL (150-450); RED BLOOD COUNT 3.83 10^6/uL (4.00-5.40); WHITE BLOOD COUNT 16.1 10^3/uL (4.0-10.0)
[2023-10-20] MEDS ORDERED: TUMS500C PO (08:44)
[2023-10-20] MEDS ORDERED: HOME MED LIST COMPLETE! XX SCH (08:45)
[2023-10-20] MEDS ORDERED: TRANEXAMIC ACID INJection 1,000 MG in NS 100 ML IV PRN (10:15)
[2023-10-20] MEDS ORDERED: OXYTOCIN INJ 10UNITS/ML 1ML VIAL IM PRN (10:15)
[2023-10-20] MEDS ORDERED: CARBOPROST TROMETHAMINE 250 MCG/ML AMP IM PRN (10:15)
[2023-10-20] MEDS ORDERED: LIDOCAINE 1% MDV 20ML VIAL INFIL PRN (10:15)
[2023-10-20] MEDS: miSOPROStol 50MCG 1/2 TABLET PO SCH (10:27)
[2023-10-21] VITALS (49 sets, daily range): BP systolic 92–143; BP diastolic 51–92
[2023-10-21] MEDS ORDERED: LR 1,000 ML IV SCH (09:00)
[2023-10-21] MEDS: OXYTOCIN DRIP 30 UNITS in IV 1 EA IV SCH (09:23)
[2023-10-21] MEDS ORDERED: NALOXONE INJ 0.4MG/1ML VIAL IV PRN (15:30)
[2023-10-21] MEDS ORDERED: EPIDURAL/PCA KEYS XX PRN (15:30)
[2023-10-21] MEDS ORDERED: LR 500 ML IV PRN (15:30)
[2023-10-21] MEDS ORDERED: diphenhydrAMINE 50MG/ML VIAL IV PRN (15:30)
[2023-10-21] MEDS: FENTANYL/ROPIVACAINE/NACL BAG 100 ML EPIDURAL SCH (16:51)
[2023-10-21] MEDS: ePHEDrine SULFATE 25 MG/5 ML(5MG/ML) SYRINGE IVP PRN (18:55)
[2023-10-22] VITALS (19 sets, daily range): BP systolic 101–135; BP diastolic 62–81; O2SAT 97
[2023-10-22] MEDS: ONDANSETRON 4MG 2ML VIAL IV PRN (02:31)
[2023-10-22] MEDS: METHYLERGONOVINE MALEATE 0.2MG/ML 1ML VIAL IM PRN (05:13)
[2023-10-22] MEDS: OXYTOCIN DRIP 30 UNITS in IV 1 EA IV PRN (05:26)
[2023-10-22] MEDS ORDERED: DIBUCAINE 1% OINTMENT 30GM TOP PRN (05:35)
[2023-10-22] MEDS ORDERED: ACETAMINOPHEN TAB 650MG DOSE (2X325MG) PO PRN (05:35)
[2023-10-22] MEDS ORDERED: METHYLERGONOVINE MALEATE 0.2 MG TAB PO PRN (05:35)
[2023-10-22] MEDS ORDERED: RHO(D) IMMUNE GLOBULIN/MALTOSE 500MCG(2500IU)/2.2ML VIAL (WINRHO) IM SCH (05:35)
[2023-10-22] MEDS ORDERED: DOCUSATE SODIUM 100MG CAPSULE PO PRN (05:35)
[2023-10-22] MEDS ORDERED: IBUPROFEN 600MG TAB PO PRN (05:35)
[2023-10-22] MEDS: LR 1,000 ML IV ONE (07:55)
[2023-10-22] MEDS: OXYTOCIN DRIP 30 UNITS in IV 1 EA IV SCH (07:57)
[2023-10-22] MEDS ORDERED: SLF 3 ML SYR IV PRN (08:20)
[2023-10-22] MEDS: IBUPROFEN 800 MG TAB PO PRN (08:30)
[2023-10-22] MEDS: PRENATAL VITAMINS CHEWABLE TABLET PO SCH (08:33)
[2023-10-22] MEDS: SLF 3 ML SYR IV SCH (08:49)
[2023-10-22] MEDS: ACETAMINOPHEN 500 MG TAB PO PRN (20:49)
[2023-10-23 06:26] VITALS: BP 130/81; O2SAT 97
[2023-10-23] MEDS: MEASLES,MUMPS,RUBELLA VACCINE INJ (MMR-II) SC.IMMUN ONE (15:42)
== END 2023-10-23 16:35 | disposition home or self-care (01) | DRG 560 ==
LOC: M LDI 07:25 → M OBS 10-22 08:42
PROVIDERS: ADMIT Obstetrics & Gynecology; ATTEND Advanced Practice Midwife
PROC: 3E0P7GC Introduction of Other Therapeutic Substance into Female Reproductive, Via Natural or Artificial Opening (ICD-10-PCS; 2023-10-20)
PROC: 10E0XZZ Delivery of Products of Conception, External Approach (ICD-10-PCS; principal; 2023-10-22)
DX: O24.425 Gestational diabetes mellitus in childbirth, controlled by oral hypoglycemic drugs (principal); Z37.0 Single live birth; Z3A.37 37 weeks gestation of pregnancy

== ENCOUNTER → 2024-02-25 | Outpatient (CLI) | payer OTHER ==
[~2024-02-25] MED LIST changes: +TUMS500C PO
[2024-02-25 15:58] LABS: BASO # 0.1 10^3/uL (0.0-0.2); BASO % 0.5 % (0.0-1.0); EOS # 0.3 10^3/uL (0.0-0.5); EOS % 2.9 % (0.0-3.0); HEMATOCRIT 38.4 % (36.0-47.0); HEMOGLOBIN 12.4 g/dl (12.0-15.5); LYMPH # 3.9 10^3/uL (1.5-5.0); LYMPH % 36.4 % (24.0-44.0); MEAN CORPUSCULAR HEMOGLOBIN 27.2 pg (27.0-33.0); MEAN CORPUSCULAR HGB CONC 32.3 g/dl (32.0-36.5); MEAN CORPUSCULAR VOLUME 84.2 fl (80.0-96.0); MONO # 0.8 10^3/uL (0.0-0.8); MONO % 7.4 % (2.0-8.0); NEUTROPHILS # 5.7 10^3/uL (1.5-8.5); NEUTROPHILS % 52.5 % (36.0-66.0); PLATELET COUNT, AUTOMATED 391 10^3/uL (150-450); RED BLOOD COUNT 4.56 10^6/uL (4.00-5.40); WHITE BLOOD COUNT 10.7 10^3/uL (4.0-10.0)
[2024-02-25 16:18] LABS: HEMOGLOBIN A1c 5.7 % (4.0-6.0)
[2024-02-25 16:27] LABS: ALKALINE PHOSPHATASE 74 U/L (35-104); ALT/SGPT 50 U/L (7.0-40); AST/SGOT 29 U/L (<34); BILIRUBIN,TOTAL 0.5 MG/DL (0.3-1.2); BLOOD UREA NITROGEN 16 MG/DL (9-23); CALCIUM LEVEL 9.5 MG/DL (8.5-10.1); CARBON DIOXIDE LEVEL 26 MMOL/L (20-31); CHLORIDE LEVEL 109 MMOL/L (98-107); CREATININE FOR GFR 0.54 MG/DL (0.55-1.30); GLOMERULAR FILTRATION RATE > 60.0 (>60); GLUCOSE, FASTING 91 MG/DL (60-100); POTASSIUM SERUM 4.4 MMOL/L (3.5-5.1); SODIUM LEVEL 141 MMOL/L (136-145); THYROID STIMULATING HORMONE 1.296 uIU/ML (0.55-4.78); TOTAL PROTEIN 7.7 G/DL (5.7-8.2)
[2024-02-25 16:28] LABS: FREE T4 1.31 NG/DL (0.89-1.76)
== END ==
LOC: M PLALAB 13:45
PROVIDERS: ATTEND Physician Assistant Medical
DX: K21.9 Gastro-esophageal reflux disease without esophagitis (principal); D72.829 Elevated white blood cell count, unspecified; K76.0 Fatty (change of) liver, not elsewhere classified; Z91.09 Other allergy status, other than to drugs and biological substances; Z86.32 Personal history of gestational diabetes; Z68.42 Body mass index [BMI] 45.0-49.9, adult; F33.0 Major depressive disorder, recurrent, mild; F41.1 Generalized anxiety disorder

== ENCOUNTER → 2024-04-08 | Outpatient (REF) | payer OTHER, MEDICAID ==
[2024-04-13 14:58] LABS: HPV APTIMA Not Detected (Not Detected)
== END ==
LOC: M PLALAB 10:25
PROVIDERS: ATTEND Obstetrics & Gynecology
DX: Z12.4 Encounter for screening for malignant neoplasm of cervix (principal)

== ENCOUNTER → 2024-06-28 | Outpatient (CLI) | payer OTHER ==
[2024-06-28 15:49] LABS: CHOLESTEROL RISK RATIO 4.04 (<5); LDL CHOLESTEROL 93.8 MG/DL (<100)
[2024-06-28 16:02] LABS: HEMOGLOBIN A1c 5.9 % (4.0-6.0)
== END ==
LOC: M PLALAB 12:55
PROVIDERS: ATTEND Physician Assistant Medical
DX: Z13.220 Encounter for screening for lipoid disorders (principal); Z86.32 Personal history of gestational diabetes

== ENCOUNTER → 2024-12-19 | Outpatient (CLI) | payer OTHER ==
[2024-12-19 11:40] LABS: BASO # 0.1 10^3/uL (0.0-0.2); BASO % 0.5 % (0.0-1.0); EOS # 0.3 10^3/uL (0.0-0.5); EOS % 3.3 % (0.0-3.0); LYMPH # 3.0 10^3/uL (1.5-5.0); LYMPH % 30.7 % (24.0-44.0); MONO # 0.6 10^3/uL (0.0-0.8); MONO % 6.3 % (2.0-8.0); NEUTROPHILS # 5.7 10^3/uL (1.5-8.5); NEUTROPHILS % 58.9 % (36.0-66.0); PLATELET COUNT, AUTOMATED 339 10^3/uL (150-450)
[2024-12-19 12:08] LABS: ALT/SGPT 46 U/L (7.0-40); AST/SGOT 26 U/L (<34); CALCIUM LEVEL 9.0 MG/DL (8.5-10.1); CARBON DIOXIDE LEVEL 26 MMOL/L (20-31); CHLORIDE LEVEL 107 MMOL/L (98-107); CREATININE FOR GFR 0.63 MG/DL (0.55-1.30); GLOMERULAR FILTRATION RATE > 90.0 (>60); POTASSIUM SERUM 4.4 MMOL/L (3.5-5.1); SODIUM LEVEL 141 MMOL/L (136-145)
== END ==
LOC: M PLALAB 09:11
PROVIDERS: ATTEND Physician Assistant Medical
DX: D72.829 Elevated white blood cell count, unspecified (principal); K76.0 Fatty (change of) liver, not elsewhere classified